=== PATIENT | female | born 1950 | race Caucasian/White ===

== ENCOUNTER 2022-11-28 09:14 | Day surgery (SDC) | payer MEDICARE, SELFPAY ==
[2022-11-21 19:55] VITALS: BMI 20.7
--- NOTE | 2022-11-27 09:38 | P.CONAN_ITS ---
Documented by User: Jenny Deluna NP 11/27/22 09:40 HPI - Anesthesia Eval Consult details Narrative: 72yo F for Bilateral Eye Muscle Medial rectus Recession Medically cleared COUNT INCLUDES THE [facility] Past Medical History Medical History Adjustment disorder Anxiety Arthritis Back pain Basal cell carcinoma Bilateral hand pain Breast cancer, left breast Cognitive changes GERD (gastroesophageal reflux disease) H/O varicose veins History of umbilical hernia Hypercholesteremia Hyperglycemia Internal hemorrhoids Nocturia Osteoarthritis Surgical History Surgical History H/O section H/O partial mastectomy History of bunionectomy History of hysterectomy History of reduction surgery of right breast History of total right knee replacement (TKR) Hx of abdominoplasty S/P arthroscopy of right shoulder S/P left rotator cuff repair S/P lumpectomy, left breast Social History Social History Patient Tobacco Use Status: Never used Tobacco Use of substances other than those prescribed or required for medical reasons: No Are you DNR?: No Advance Directives: No Advance Directives Information Provided: Yes Advance Directives on File: No Recently lost weight without trying: No Nutrition Risks: No Nutritional Risk Meds Allergies Allergy/AdvReac Type Severity Reaction Status Date / Time No Known Allergies Allergy Verified 11/21/22 19:43 Home Medications Medication Instructions Recorded Confirmed Last Taken Type anastrozole 1 mg tablet 1 mg PO DAILY 11/21/22 11/21/22 Unknown History ascorbic acid (vitamin C) 500 mg 500 mg PO DAILY 11/21/22 11/21/22 Unknown History tablet (Vitamin C) biotin 1 mg capsule 1 mg PO DAILY 11/21/22 11/21/22 Unknown History celecoxib 50 mg capsule 50 mg PO BID 11/21/22 11/21/22 Unknown History cholecalciferol (vitamin D3) 125 125 mcg PO DAILY 11/21/22 11/21/22 Unknown History mcg (5,000 unit) tablet (Vitamin D3) docosahexaenoic acid (dha)-epa 120 1 cap PO DAILY 11/21/22 11/21/22 Unknown History mg-180 mg capsule (Fish Oil) fluoxetine 10 mg capsule 20 mg PO DAILY 11/21/22 11/21/22 11/28/22 History folic acid 1 mg tablet 1 mg PO DAILY 11/21/22 11/21/22 Unknown History glucosamine sulfate 750 mg tablet 750 mg PO DAILY 11/21/22 11/21/22 Unknown History hyalur ac-chond sul-colg II-AA 40 1 cap PO DAILY 11/21/22 11/21/22 Unknown History mg-80 mg-400 mg capsule (Hyaluronic Acid(with chondroitin-collagenII)) lutein 6 mg capsule 6 mg PO DAILY 11/21/22 11/21/22 Unknown History magnesium 250 mg tablet 250 mg PO DAILY 11/21/22 11/21/22 Unknown History multivitamin 1 tab PO DAILY 11/21/22 11/21/22 Unknown History vitamin A 2,400 mcg capsule 2,400 mcg PO DAILY 11/21/22 11/21/22 Unknown History vitamin B12 0.5 mg-folic acid 1 mg 1 tab PO DAILY 11/21/22 11/21/22 Unknown History tablet vitamin E 268 mg (400 unit) capsule 1 cap PO DAILY 11/21/22 11/21/22 Unknown History Exam Exam Date and Time: November 27, 2022 0938 Height,Weight and Vital Signs: Height 5 ft 1 in Weight 49.895 kg Assessment and Plan Assessment Anesthesia Assessment: Chart Reviewed Documented by User: Jimena Curtis MD 11/28/22 13:22 COUNT INCLUDES THE [facility] Past Medical History Medical History Adjustment disorder Anxiety Arthritis Back pain Basal cell carcinoma Bilateral hand pain Breast cancer, left breast Cognitive changes GERD (gastroesophageal reflux disease) H/O varicose veins History of umbilical hernia Hypercholesteremia Hyperglycemia Internal hemorrhoids Nocturia Osteoarthritis Surgical History Surgical History H/O section H/O partial mastectomy History of bunionectomy History of hysterectomy History of reduction surgery of right breast History of total right knee replacement (TKR) Hx of abdominoplasty S/P arthroscopy of right shoulder S/P left rotator cuff repair S/P lumpectomy, left breast History of Problems with Anesthesia: No Social History Social History Patient Tobacco Use Status: Never used Tobacco Use of substances other than those prescribed or required for medical reasons: No Are you DNR?: No Advance Directives: No Advance Directives Information Provided: Yes Advance Directives on File: No Recently lost weight without trying: No Nutrition Risks: No Nutritional Risk Meds Allergies Allergy/AdvReac Type Severity Reaction Status Date / Time No Known Allergies Allergy Verified 11/21/22 19:43 Home Medications Medication Instructions Recorded Confirmed Last Taken Type anastrozole 1 mg tablet 1 mg PO DAILY 11/21/22 11/21/22 Unknown History ascorbic acid (vitamin C) 500 mg 500 mg PO DAILY 11/21/22 11/21/22 Unknown History tablet (Vitamin C) biotin 1 mg capsule 1 mg PO DAILY 11/21/22 11/21/22 Unknown History celecoxib 50 mg capsule 50 mg PO BID 11/21/22 11/21/22 Unknown History cholecalciferol (vitamin D3) 125 125 mcg PO DAILY 11/21/22 11/21/22 Unknown History mcg (5,000 unit) tablet (Vitamin D3) docosahexaenoic acid (dha)-epa 120 1 cap PO DAILY 11/21/22 11/21/22 Unknown History mg-180 mg capsule (Fish Oil) fluoxetine 10 mg capsule 20 mg PO DAILY 11/21/22 11/21/22 11/28/22 History folic acid 1 mg tablet 1 mg PO DAILY 11/21/22 11/21/22 Unknown History glucosamine sulfate 750 mg tablet 750 mg PO DAILY 11/21/22 11/21/22 Unknown History hyalur ac-chond sul-colg II-AA 40 1 cap PO DAILY 11/21/22 11/21/22 Unknown History mg-80 mg-400 mg capsule (Hyaluronic Acid(with chondroitin-collagenII)) lutein 6 mg capsule 6 mg PO DAILY 11/21/22 11/21/22 Unknown History magnesium 250 mg tablet 250 mg PO DAILY 11/21/22 11/21/22 Unknown History multivitamin 1 tab PO DAILY 11/21/22 11/21/22 Unknown History vitamin A 2,400 mcg capsule 2,400 mcg PO DAILY 11/21/22 11/21/22 Unknown History vitamin B12 0.5 mg-folic acid 1 mg 1 tab PO DAILY 11/21/22 11/21/22 Unknown History tablet vitamin E 268 mg (400 unit) capsule 1 cap PO DAILY 11/21/22 11/21/22 Unknown History Exam Airway Mallampati Class: II TM Dist: >3cm Neck ROM: Full Loose/Missing/Broken Teeth: No Heart: RRR Lungs: CTA Assessment and Plan Assessment Anesthesia Assessment: Anesthesia Plan Discussed Final Anesthetic Review History of Problems with Anesthesia: No NPO: Yes ASA Class: II Final Preanesthetic Review: Meds/Allgs Chart Reviewed, Consent Obtained/Reviewed and Anes Risks/Benef Reviewed Patient Risk: Low Procedure Risk: Low Anesthetic Plan Anesthetic Plan: GA Disposition: Standard PACU
[2022-11-28] VITALS (10 sets, daily range): BP systolic 113–149; BP diastolic 49–92; PULSE 56–82; RESP 12–18; TEMP 36.6; O2SAT 96–100; BMI 22.3
[2022-11-28] MEDS: Lactated Ringers 1,000 ML 100 ML IVCONT (10:15)
--- NOTE | 2022-11-28 13:45 | P.OPHTHAL_ITS ---
Ophthalmology Operative Note Date of Service: 11/28/22 Narrative: Diagnosis esotropia. Procedure bilateral medial rectus recessions of [address] Back. Anesthesia general. Complications none. The patient was brought to the operating room and placed under general anesthesia. The patient's eyes were prepped and draped in the usual sterile ophthalmic fashion. A lid speculum was placed in the right eye and that incision was made down to bare sclera in the inferonasal fornix. The medial rectus muscle was hooked and secured with a double-armed Vicryl suture. The muscle was then disinserted the globe and reattached to a position 4 mm behind the original insertion. Co njunctiva was closed with interrupted Vicryl sutures. An identical procedure was then performed on the left eye. The patient was then awoken from general anesthesia and discharged to postoperative recovery in good condition.
[2022-11-28] MEDS: oxyCODONE HCl Immed Release 5 MG TABLET PO (14:07)
[2022-11-28] MEDS: Acetaminophen 325 MG TABLET 650 MG PO (14:07)
[2022-11-28] MEDS: Throat Lozenge, Medicated LOZENGE 1 LOZENGE MUCOUS MEM (14:29)
== END 2022-11-28 16:13 | disposition home or self-care (01) ==
PROVIDERS: PCP Internal Medicine; Visit Provider Ophthalmology
PROC: (CPT 67311; principal; 2022-11-28 11:00)
DX: H53.2 Diplopia (principal); H50.00 Unspecified esotropia; C50.212 Malignant neoplasm of upper-inner quadrant of left female breast; C77.3 Secondary and unspecified malignant neoplasm of axilla and upper limb lymph nodes; Z17.0 Estrogen receptor positive status [ER+]; Z90.12 Acquired absence of left breast and nipple; Z79.811 Long term (current) use of aromatase inhibitors; R73.9 Hyperglycemia, unspecified; E78.00 Pure hypercholesterolemia, unspecified; Z79.899 Other long term (current) drug therapy
CPT/HCPCS: 67311; J1100; J1885; J2405; J3010